=== PATIENT | female | born 1955 | race Caucasian/White ===

== ENCOUNTER 2021-04-07 10:19 | Day surgery (SDC) | payer OTHER ==
[2021-04-07] MEDS ORDERED: fentaNYL citrate 0.05 MG/ML VIAL ONE ×2 (11:17)
[2021-04-07] MEDS ORDERED: MIDAZOLAM 5 MG/5 ML VIAL ONE (11:17)
[2021-04-07] MEDS ORDERED: diphenhydrAMINE 50 MG/ML VIAL ONE (11:17)
[2021-04-07] MEDS ORDERED: LIDOCAINE 2% 100 MG/5 ML UJET TP ONE ×2 (11:18→13:55)
[2021-04-07 12:06] LABS: ALBUMIN 3.2 g/dL (3.4-5.0); ANION GAP 10.8 (8-16); CARBON DIOXIDE 26.6 mmol/L (21-32); CREATININE 0.7 mg/dL (0.6-1.3); POTASSIUM 4.4 mmol/L (3.5-5.1); TOTAL BILIRUBIN 0.4 mg/dL (0.0-1.0)
[2021-04-07] MEDS ORDERED: diphenhydrAMINE 50 MG/ML VIAL IVP ONE (13:55)
[2021-04-07] MEDS ORDERED: fentaNYL citrate 0.05 MG/ML VIAL IVP ONE (13:55)
[2021-04-07] MEDS ORDERED: MIDAZOLAM 2 MG/2 ML VIAL IVP ONE (13:55)
== END 2021-04-07 13:17 | disposition home or self-care (01) ==
LOC: MDS 10:19 → MMU 10:22 → MDS 13:17
PROVIDERS: ATTEND Internal Medicine Gastroenterology
DX: Z12.11 Encounter for screening for malignant neoplasm of colon (principal); K57.30 Diverticulosis of large intestine without perforation or abscess without bleeding; K21.9 Gastro-esophageal reflux disease without esophagitis; K57.92 Diverticulitis of intestine, part unspecified, without perforation or abscess without bleeding; Z20.822 Contact with and (suspected) exposure to COVID-19; I10 Essential (primary) hypertension; J44.9 Chronic obstructive pulmonary disease, unspecified; Z79.899 Other long term (current) drug therapy
CPT/HCPCS: 36415; 80053; 87426; G0121; J1200; J2250; J3010